=== PATIENT | male | born 1945 | race Caucasian/White ===

== ENCOUNTER 2016-04-07 19:26 | Emergency (ER) | payer BC, OTHER ==
[2016-04-07 19:30] VITALS: BP 138/77; PULSE 105; RESP 18; TEMP 98.6; O2SAT 96
--- NOTE | 2016-04-07 19:49 | PD ---
HPI Chief Complaint: Alcohol intoxication Time Seen by Provider: 19:31 Travel History International Travel<30 days: No (unknown) Contact w/Intl Traveler<30days: No (unknown) History of Present Illness HPI 70yo M with PMH of depression, alcohol abuse and neuropathy brought in as Szymanski Act because he was intoxicated, sitting at home with feces and also states he was going to kill someone at home. Pt denies any suicidal ideation here. No neurologic deficit or signs of trauma. Denies any complaints but is intoxicated. PFSH Social History Tobacco Use: No (unknown) Allergies-Medications (Allergen,Severity, Reaction): Coded Allergies: DEMETRIS Inhibitors (Verified Allergy, Unknown, 04/08/16) Reported Meds & Prescriptions Reported Meds & Active Scripts Active Reported [BP med] 10 Mg DAILY Lyrica (Pregabalin) 100 Mg Cap 100 Mg PO Q6HR Amitriptyline (Amitriptyline HCl) 25 Mg Tab 25 Mg PO HS Review of Systems Except as stated in HPI: all other systems reviewed are Neg Physical Exam Narrative GENERAL: 70yo M intoxicated but oriented to person, time and place. SKIN: Warm and dry. HEAD: Atraumatic. Normocephalic. EYES: Pupils equal and round. EOMI. No scleral icterus. No injection or drainage. ENT: No nasal bleeding or discharge. Mucous membranes pink and moist. NECK: Trachea midline. No JVD. CARDIOVASCULAR: Regular rate and rhythm. No murmur appreciated. RESPIRATORY: No accessory muscle use. Clear to auscultation. Breath sounds equal bilaterally. GASTROINTESTINAL: Abdomen softly distended, non-tender. No rebound tenderness or guarding. MUSCULOSKELETAL: No obvious deformities. No clubbing. No cyanosis. No edema. NEUROLOGICAL: Awake and alert. No obvious cranial nerve deficits. Motor grossly within normal limits. Normal speech. Muscle strength 5/5 in all extremities. Sensation intact. PSYCHIATRIC: Appropriate mood and affect; insight and judgment normal. Data Data Last Documented VS Vital Signs Date Time Temp Pulse Resp B/P Pulse Ox O2 Delivery O2 Flow Rate FiO2 04/08/16 11:58 96 18 155/90 96 Room Air 04/08/16 11:00 98.5 Orders Complete Blood Count With Diff (04/07/16 19:31) Comprehensive Metabolic Panel (04/07/16 19:31) Urinalysis - C+S If Indicated (04/07/16 19:31) Drug Screen, Random Urine (04/07/16 19:31) Electrocardiogram (04/07/16 19:31) Alcohol (Ethanol) (04/07/16 19:31) Salicylates (Aspirin) (04/07/16 19:31) Tylenol (Acetaminophen) (04/07/16 19:31) Psych Screen (04/07/16 19:31) Sodium Chlor 0.9% 1000 Ml Inj (Ns 1000 M (04/07/16 21:30) Sodium Chlor 0.9% 1000 Ml Inj (Ns 1000 M (04/07/16 22:45) Acetaminophen (Tylenol) (04/08/16 04:00) Acetaminophen (Tylenol) (04/08/16 04:03) Knee, Complete (4vws) (04/08/16 ) Ice/Cold Pack (04/08/16 09:06) Acetaminophen (Tylenol) (04/08/16 09:15) ^ Demetris Bandage (04/08/16 10:09) Diet Regular Basic (04/08/16 Lunch) Labs Laboratory Tests Test 04/07/16 04/07/16 20:56 21:35 Urine Color LIGHT-YELLOW Urine Turbidity CLEAR Urine pH 6.0 Urine Specific [place] 1.005 Urine Protein NEG mg/dL Urine Glucose (UA) NEG mg/dL Urine Ketones NEG mg/dL Urine Occult Blood NEG Urine Nitrite NEG Urine Bilirubin NEG Urine Urobilinogen LESS THAN 2.0 MG/DL Urine Leukocyte Esterase NEG Urine RBC LESS THAN 1 /hpf Urine WBC LESS THAN 1 /hpf Urine Mucus FEW /lpf Microscopic Urinalysis Comment CULT NOT INDICATED Sodium Level 139 MEQ/L Potassium Level 3.7 MEQ/L Chloride Level 103 MEQ/L Carbon Dioxide Level 25.6 MEQ/L Anion Gap 10 MEQ/L Blood Urea Nitrogen 16 MG/DL Creatinine 1.22 MG/DL Estimat Glomerular Filtration 59 ML/MIN Rate Random Glucose 103 MG/DL Calcium Level 8.5 MG/DL Total Bilirubin 0.3 MG/DL Aspartate Amino Transf 33 U/L (AST/SGOT) Alanine Aminotransferase 29 U/L (ALT/SGPT) Alkaline Phosphatase 73 U/L Total Protein 8.5 GM/DL Albumin 4.0 GM/DL Salicylates Level LESS THAN 1.7 MG/DL Urine Opiates Screen NEG Acetaminophen Level LESS THAN 2.0 MCG/ML Urine Barbiturates Screen NEG Urine Amphetamines Screen NEG Urine Benzodiazepines Screen NEG Urine Cocaine Screen NEG Urine Cannabinoids Screen NEG Ethyl Alcohol Level 303 MG/DL White Blood Count 11.1 TH/MM3 Red Blood Count 3.96 MIL/MM3 Hemoglobin 12.4 GM/DL Hematocrit 36.3 % Mean Corpuscular Volume 91.6 FL Mean Corpuscular Hemoglobin 31.2 PG Mean Corpuscular Hemoglobin 34.1 % Concent Red Cell Distribution Width 16.6 % Platelet Count 229 TH/MM3 Mean Platelet Volume 6.7 FL Neutrophils (%) (Auto) 84.9 % Lymphocytes (%) (Auto) 9.8 % Monocytes (%) (Auto) 4.8 % Eosinophils (%) (Auto) 0.2 % Basophils (%) (Auto) 0.3 % Neutrophils # (Auto) 9.4 TH/MM3 Lymphocytes # (Auto) 1.1 TH/MM3 Monocytes # (Auto) 0.5 TH/MM3 Eosinophils # (Auto) 0.0 TH/MM3 Basophils # (Auto) 0.0 TH/MM3 CBC Comment DIFF FINAL Differential Comment MDM Medical Decision Making Medical Screen Exam Complete: Yes Emergency Medical Condition: Yes Interpretation(s) EKG: NSR 93bpm. Normal axis. No ST segment elevation or depression. Q wave II , III, aVF. Differential Diagnosis Alcohol intoxication Narrative Course 70yo M with depression and alcohol abuse brought in as Szymanski Act for stating he wanted to kill someone at home while intoxicated. Pt is moving all extremities with no signs of trauma. Pt is intoxicated but answers questions and has full muscle strength in extremities with equal sensations. Pt was cleaned by nurse and denies any complaints. As per EVAC, pt's cat recently and he has been drinking heavily. Pt admits to drinking too much rum. Will obtain labs, EKG, and placed psych evaluation. EKG reviewed, pending labs, UA before medical clearance. Pt sign out to next team to follow up and medically clear for psych evaluation. Diagnosis Primary Impression: Medical clearance for psychiatric admission Shelia Padgett DO Apr 07, 2016 19:49
[2016-04-07 21:19] VITALS: BP 135/88; PULSE 105; RESP 22; O2SAT 92
[2016-04-07] MEDS ORDERED: SODIUM CHLOR 0.9% 1000 ML INJ 1,000 ML IV ONE ×2 (21:30→22:45)
--- NOTE | 2016-04-07 21:34 | PD ---
Physical Exam Exam Limitations: Intoxication Date Seen by Provider: Apr 07, 2016 Narrative For full history and physical examination please see previous provider's note. I assumed care of this patient at change of shift. Patient reports to me that he is not suicidal or homicidal. He was brought in under Szymanski act for threatening to kill his Ynes, and making threatening statements towards her. Patient was found sitting intoxicated in his own feces at home unable to stand up. Patient does admit to drinking "lots" of rum today. Data Data Last Documented VS Vital Signs Date Time Temp Pulse Resp B/P Pulse Ox O2 Delivery O2 Flow Rate FiO2 04/07/16 22:49 94 18 131/75 98 Room Air 04/07/16 19:30 98.6 Orders Complete Blood Count With Diff (04/07/16 19:31) Comprehensive Metabolic Panel (04/07/16 19:31) Urinalysis - C+S If Indicated (04/07/16 19:31) Drug Screen, Random Urine (04/07/16 19:31) Electrocardiogram (04/07/16 19:31) Alcohol (Ethanol) (04/07/16 19:31) Salicylates (Aspirin) (04/07/16 19:31) Tylenol (Acetaminophen) (04/07/16 19:31) Psych Screen (04/07/16 19:31) Sodium Chlor 0.9% 1000 Ml Inj (Ns 1000 M (04/07/16 21:30) Sodium Chlor 0.9% 1000 Ml Inj (Ns 1000 M (04/07/16 22:45) Labs Laboratory Tests Test 04/07/16 04/07/16 20:56 21:35 Urine Color LIGHT-YELLOW Urine Turbidity CLEAR Urine pH 6.0 Urine Specific [place] 1.005 Urine Protein NEG mg/dL Urine Glucose (UA) NEG mg/dL Urine Ketones NEG mg/dL Urine Occult Blood NEG Urine Nitrite NEG Urine Bilirubin NEG Urine Urobilinogen LESS THAN 2.0 MG/DL Urine Leukocyte Esterase NEG Urine RBC LESS THAN 1 /hpf Urine WBC LESS THAN 1 /hpf Urine Mucus FEW /lpf Microscopic Urinalysis Comment CULT NOT INDICATED Sodium Level 139 MEQ/L Potassium Level 3.7 MEQ/L Chloride Level 103 MEQ/L Carbon Dioxide Level 25.6 MEQ/L Anion Gap 10 MEQ/L Blood Urea Nitrogen 16 MG/DL Creatinine 1.22 MG/DL Estimat Glomerular Filtration 59 ML/MIN Rate Random Glucose 103 MG/DL Calcium Level 8.5 MG/DL Total Bilirubin 0.3 MG/DL Aspartate Amino Transf 33 U/L (AST/SGOT) Alanine Aminotransferase 29 U/L (ALT/SGPT) Alkaline Phosphatase 73 U/L Total Protein 8.5 GM/DL Albumin 4.0 GM/DL Salicylates Level LESS THAN 1.7 MG/DL Urine Opiates Screen NEG Acetaminophen Level LESS THAN 2.0 MCG/ML Urine Barbiturates Screen NEG Urine Amphetamines Screen NEG Urine Benzodiazepines Screen NEG Urine Cocaine Screen NEG Urine Cannabinoids Screen NEG Ethyl Alcohol Level 303 MG/DL White Blood Count 11.1 TH/MM3 Red Blood Count 3.96 MIL/MM3 Hemoglobin 12.4 GM/DL Hematocrit 36.3 % Mean Corpuscular Volume 91.6 FL Mean Corpuscular Hemoglobin 31.2 PG Mean Corpuscular Hemoglobin 34.1 % Concent Red Cell Distribution Width 16.6 % Platelet Count 229 TH/MM3 Mean Platelet Volume 6.7 FL Neutrophils (%) (Auto) 84.9 % Lymphocytes (%) (Auto) 9.8 % Monocytes (%) (Auto) 4.8 % Eosinophils (%) (Auto) 0.2 % Basophils (%) (Auto) 0.3 % Neutrophils # (Auto) 9.4 TH/MM3 Lymphocytes # (Auto) 1.1 TH/MM3 Monocytes # (Auto) 0.5 TH/MM3 Eosinophils # (Auto) 0.0 TH/MM3 Basophils # (Auto) 0.0 TH/MM3 CBC Comment DIFF FINAL Differential Comment [facility] Medical Record Reviewed: Yes Supervised Visit with ALFREDO: Yes Interpretation(s) Vital Signs Date Time Temp Pulse Resp B/P Pulse Ox O2 Delivery O2 Flow Rate FiO2 04/07/16 21:19 105 22 135/88 92 Room Air 04/07/16 19:30 98.6 105 18 138/77 96 Differential Diagnosis Substance abuse versus acute intoxication versus depression versus delirium versus psychosis versus other Narrative Course Patient is a 70-year-old male who was brought in under a Szymanski act for threatening to kill his . Patient was heavily intoxicated, unable to stand and found sitting in his own feces. Patient reports significant home stressors , he states that his stepdaughter is addicted to crack and he is tired of financially supporting her. The time of my assessment, patient appears to still be intoxicated. Labs pending, his heart rate is elevated at 105, IV fluids ordered. Patient is resting comfortably, his vital signs are otherwise stable. Patient was given IV fluid resuscitation, his heart rate was reassessed at 94, his vital signs are stable. His alcohol level was 303. Patient is medically clear for psychiatric evaluation. Diagnosis Primary Impression: Medical clearance for psychiatric admission Additional Impressions: Alcohol intoxication Qualified Code: F10.120 - Alcohol intoxication, uncomplicated Homicidal ideations Condition: Stable Li Cline Apr 07, 2016 21:34
[2016-04-07 21:35] LABS: BLOOD, URINE NEG (NEG); COMMENT (UR) CULT NOT INDICATED; CULTURE IF INDICATED CULT NOT INDICATED; GLUCOSE,URINE NEG (NEG); KETONE, URINE NEG (NEG); MUCUS URINE FEW /lpf (OCC); NITRITE,URINE NEG (NEG); URINE COLOR LIGHT-YELLOW (YELLW/STRAW)
[2016-04-07 21:40] LABS: AMPHETAMINE, URINE NEG (NEG); BARBITURATES, URINE NEG (NEG); COCAINE, URINE NEG (NEG)
[2016-04-07 21:45] LABS: AUTOMATED NEUTROPHIL # 9.4 TH/MM3 (1.8-7.7); BASOPHIL % 0.3 % (0.0-2.0); EOSINOPHIL % 0.2 % (0.0-4.0); HEMATOCRIT 36.3 % (39.0-51.0); HEMO FLAGS DIFF FINAL; LYMPH % 9.8 % (9.0-44.0); LYMPHOCYTE # 1.1 TH/MM3 (1.0-4.8); MEAN CELL VOLUME 91.6 FL (80.0-100.0); MEAN CORPUSCULAR HEMOGLOBIN 31.2 PG (27.0-34.0); MEAN CORPUSCULAR HGB CONC 34.1 % (32.0-36.0); MONO % 4.8 % (0.0-8.0); NEUT % 84.9 % (16.0-70.0); PLATELET COUNT 229 TH/MM3 (150-450); RED BLOOD COUNT 3.96 MIL/MM3 (4.50-5.90); RED CELL DISTRIBUTION WIDTH 16.6 % (11.6-17.2); WHITE BLOOD COUNT 11.1 TH/MM3 (4.0-11.0)
[2016-04-07 21:50] LABS: ANION GAP 10 MEQ/L (5-15)
[2016-04-07 21:53] LABS: ALKALINE PHOSPHATASE 73 U/L (45-117); ALT (GPT) 29 U/L (12-78); AST (GOT) 33 U/L (15-37); BICARBONATE 25.6 MEQ/L (21.0-32.0); BLOOD UREA NITROGEN 16 MG/DL (7-18); CHLORIDE 103 MEQ/L (98-107); GLOMERULAR FILTRATION RATE 59 ML/MIN (>89); POTASSIUM 3.7 MEQ/L (3.5-5.1); SODIUM (NA) 139 MEQ/L (136-145); TOTAL BILIRUBIN ADULT 0.3 MG/DL (0.2-1.0)
[2016-04-07 22:27] LABS: ACETAMINOPHEN LESS THAN 2.0 MCG/ML (10.0-30.0)
[2016-04-07 22:49] VITALS: BP 131/75; PULSE 94; RESP 18; O2SAT 98
[2016-04-07 23:26] VITALS: BP 155/71; PULSE 98; RESP 18; TEMP 98.1; O2SAT 97
[2016-04-08 04:00] VITALS: BP 130/81; PULSE 81; RESP 16; TEMP 97.8; O2SAT 99
[2016-04-08] MEDS ORDERED: ACETAMINOPHEN 325 MG TAB PO ONE (04:00)
[2016-04-08] MEDS ORDERED: ACETAMINOPHEN 325 MG TAB ONE (04:03)
--- NOTE | 2016-04-08 09:06 | PD ---
Physical Exam Narrative Patient was initially seen and evaluated last night after being brought in under a Szymanski act and intoxicated. Patient awoke this morning complaining of left knee pain on the medial aspect describes a burning/stabbing pain without radiation. Pain is worse with palpation and certain movement. Patient is uncertain if he injured the knee. Patient denies any issues with his knee previously. Knee: Negative patellar apprehension, varus and valgus maneuvers, anterior draw test, and Annika test. Pulses equal BL distal to injury. Capillary refill less than 2 seconds distal to injury and equal BL. FROM distal to injury and equal BL. Strength distal to injury equal BL. NV intact distal to injury. Dorsal pulses equal BL. Patient reports tenderness to palpation of the medial aspect of left knee. Data Data Last Documented VS Vital Signs Date Time Temp Pulse Resp B/P Pulse Ox O2 Delivery O2 Flow Rate FiO2 04/08/16 09:29 103 17 141/70 96 Room Air 04/08/16 04:00 97.8 Orders Complete Blood Count With Diff (04/07/16 19:31) Comprehensive Metabolic Panel (04/07/16 19:31) Urinalysis - C+S If Indicated (04/07/16 19:31) Drug Screen, Random Urine (04/07/16 19:31) Electrocardiogram (04/07/16 19:31) Alcohol (Ethanol) (04/07/16 19:31) Salicylates (Aspirin) (04/07/16 19:31) Tylenol (Acetaminophen) (04/07/16 19:31) Psych Screen (04/07/16 19:31) Sodium Chlor 0.9% 1000 Ml Inj (Ns 1000 M (04/07/16 21:30) Sodium Chlor 0.9% 1000 Ml Inj (Ns 1000 M (04/07/16 22:45) Acetaminophen (Tylenol) (04/08/16 04:00) Acetaminophen (Tylenol) (04/08/16 04:03) Knee, Complete (4vws) (04/08/16 ) Ice/Cold Pack (04/08/16 09:06) Acetaminophen (Tylenol) (04/08/16 09:15) ^ Demetris Bandage (04/08/16 10:09) Labs Laboratory Tests Test 04/07/16 04/07/16 20:56 21:35 Urine Color LIGHT-YELLOW Urine Turbidity CLEAR Urine pH 6.0 Urine Specific [place] 1.005 Urine Protein NEG mg/dL Urine Glucose (UA) NEG mg/dL Urine Ketones NEG mg/dL Urine Occult Blood NEG Urine Nitrite NEG Urine Bilirubin NEG Urine Urobilinogen LESS THAN 2.0 MG/DL Urine Leukocyte Esterase NEG Urine RBC LESS THAN 1 /hpf Urine WBC LESS THAN 1 /hpf Urine Mucus FEW /lpf Microscopic Urinalysis Comment CULT NOT INDICATED Sodium Level 139 MEQ/L Potassium Level 3.7 MEQ/L Chloride Level 103 MEQ/L Carbon Dioxide Level 25.6 MEQ/L Anion Gap 10 MEQ/L Blood Urea Nitrogen 16 MG/DL Creatinine 1.22 MG/DL Estimat Glomerular Filtration 59 ML/MIN Rate Random Glucose 103 MG/DL Calcium Level 8.5 MG/DL Total Bilirubin 0.3 MG/DL Aspartate Amino Transf 33 U/L (AST/SGOT) Alanine Aminotransferase 29 U/L (ALT/SGPT) Alkaline Phosphatase 73 U/L Total Protein 8.5 GM/DL Albumin 4.0 GM/DL Salicylates Level LESS THAN 1.7 MG/DL Urine Opiates Screen NEG Acetaminophen Level LESS THAN 2.0 MCG/ML Urine Barbiturates Screen NEG Urine Amphetamines Screen NEG Urine Benzodiazepines Screen NEG Urine Cocaine Screen NEG Urine Cannabinoids Screen NEG Ethyl Alcohol Level 303 MG/DL White Blood Count 11.1 TH/MM3 Red Blood Count 3.96 MIL/MM3 Hemoglobin 12.4 GM/DL Hematocrit 36.3 % Mean Corpuscular Volume 91.6 FL Mean Corpuscular Hemoglobin 31.2 PG Mean Corpuscular Hemoglobin 34.1 % Concent Red Cell Distribution Width 16.6 % Platelet Count 229 TH/MM3 Mean Platelet Volume 6.7 FL Neutrophils (%) (Auto) 84.9 % Lymphocytes (%) (Auto) 9.8 % Monocytes (%) (Auto) 4.8 % Eosinophils (%) (Auto) 0.2 % Basophils (%) (Auto) 0.3 % Neutrophils # (Auto) 9.4 TH/MM3 Lymphocytes # (Auto) 1.1 TH/MM3 Monocytes # (Auto) 0.5 TH/MM3 Eosinophils # (Auto) 0.0 TH/MM3 Basophils # (Auto) 0.0 TH/MM3 CBC Comment DIFF FINAL Differential Comment [facility] Supervised Visit with ALFREDO: No Narrative Course There is no clinical evidence to suspect bony injury by exam. Radiographic examination revealed no fracture seen at this time. The patient has full range of motion on active and passive motions. There is no significant edema. There is no proximal or distal joint effusion. The distal extremity appears neurovascularly intact, without evidence of neurovascular injury nor compartment syndrome. Tendon exam also was intact. The patient was given warnings for vascular compromise. The patient is to follow up with their regular physician or Orthopedics. Diagnosis Primary Impression: Medical clearance for psychiatric admission Additional Impressions: Alcohol intoxication Qualified Code: F10.120 - Alcohol intoxication, uncomplicated Homicidal ideations Left knee pain Qualified Code: M25.562 - Left knee pain, unspecified chronicity Referrals: Adan Garnett MD Patient Instructions: General Instructions, Knee Pain (ED) Additional Instruction: Follow-up with your primary care physician and/or orthopedics this week for reevaluation of your knee pain. Use [id number] Tylenol and/or ibuprofen as needed for pain. Follow instructions on the packaging. Apply ice to affected area 20 minutes per hour as needed for pain. Wear demetris wrap for comfort as needed.. Return to the emergency department if symptoms get worse. Condition: Stable Todd Robertson Apr 08, 2016 09:06
[2016-04-08] MEDS ORDERED: ACETAMINOPHEN 500 MG CPLT PO ONE (09:15)
[2016-04-08 09:29] VITALS: BP 141/70; PULSE 103; RESP 17; O2SAT 96
[2016-04-08] MEDS ORDERED: AMIT25TA9 PO (09:33)
[2016-04-08] MEDS ORDERED: LYRI100C PO (09:33)
[2016-04-08] MEDS ORDERED: BP med (09:33)
--- NOTE | 2016-04-08 10:06 | RADRPT ---
EXAM DATE/TIME: 04/08/2016 09:53 [place] COMPARISON: No previous studies available for comparison. INDICATIONS : Left knee pain, No trauma MEDICAL HISTORY : None. SURGICAL HISTORY : None. ENCOUNTER: Initial ACUITY: 1 day PAIN SCORE: 7/10 LOCATION: Left knee FINDINGS: Four view examination of the left knee demonstrates no evidence of fracture or dislocation. Bony min eralization is normal. The articular surfaces are intact. The suprapatellar soft tissues have a nor mal configuration. CONCLUSION: Negative for fracture or joint effusion. Olu Bowens MD FACR on April 08, 2016 at 10:04 Board Certified Radiologist. This report was verified electronically.
[2016-04-08 11:00] VITALS: BP 159/91; PULSE 116; RESP 18; TEMP 98.5; O2SAT 97
[2016-04-08 11:58] VITALS: BP 155/90; PULSE 96; RESP 18; O2SAT 96
--- NOTE | 2016-04-08 12:00 | PD.CONS ---
Provisional Diagnosis Admission Date Alcohol abuse with alcohol-induced mood disorder F 10.14, alcohol intoxication History of Present Illness Service Psychiatry Consult Requested By EDMD Reason for Consult Szymanski act Primary Care Physician No Primary Care Physician HPI Patient is a 70-year-old white male comes here under Szymanski act by the [facility]'s office dated 04/07/16 1836 hrs. stating patient has been drinking alcoholic beverages heavily for the past 2 weeks he fell to the ground and was unable to stand up he defecated himself and sitting in his feces his Romulo Walsh and stepdaughter Regi Olivo were attempting to stand him up but were unsuccessful due to his highly intoxicated state Ynes call 911 seeking medical assistance as Mj was seated with his legs bent at the knees and feet under him restricting blood flow . Aspirin was on the 9010 Mj became hostile threatening to kill Ynes. While on same fragment several statements of your dad and pointed to Ynes. Ynes advise she is not violent or threatening when he is not drinking. Patient seen screened in the ED blood alcohol level of 303. Patient seen today in the J pod at the present time patient sitting quietly in his room on J pod nurse Ye present throughout session, patient is alert oriented calm cooperative just vague mild tremors noted X acknowledging reluctantly there is an alcoholic that he drinks multiple days per week that he has a drink in the morning that he drinks vodka. He acknowledges black and a passing out. He acknowledges a detox number of years ago. He acknowledges multiple DUIs. He denies suicidality homicidality voices or visions. He denies any prior psychiatric contact psychotropic medications of psychiatric hospitalizations. He states he lives with his and his stepdaughter began along well but he does acknowledge behavioral issues when he becomes intoxicated. His history of alcohol abuse with the family also. At the present time patient does not meet Szymanski act criteria I will lift the Szymanski act. There is no Rx written by me as okay by psych for discharge when medically cleared strong recommendations AA, which is attended in the past with success. Strong recommendation voluntary assessment through [facility] act outpatient substance abuse assessment Review of Systems ROS Limitations: Intoxication Except as stated in HPI: all other systems reviewed are Neg Past Family Social History Coded Allergies: CHEO Inhibitors (Verified Allergy, Unknown, 04/08/16) Past Medical History Patient medically cleared ED Reported Medications [BP med] No Conflict Check10 Mg DAILY 04/08/16 Pregabalin (Lyrica)100 Mg [id number] Mg PO Q6HR #60 CAP Ref 0 04/08/16 Amitriptyline 25 Mg Tab25 Mg PO HS 04/08/16 Family History Family history EtOH abuse Social History Patient lives with and stepdaughter Patient's Strengths (min. 2) Patient verbal plexus health care Physical Exam Please see ED physical exam Vital Signs Vital Signs Date Time Temp Pulse Resp B/P Pulse Ox O2 Delivery O2 Flow Rate FiO2 04/08/16 11:00 98.5 116 18 159/91 97 Room Air Mental Status Examination Alert oriented heavily said white male laying calmly in his Xavier pod Appearance Somewhat disheveled Speech: Unremarkable, Hesitant (mildly) Orientation: x3 Memory: Unremarkable Thought Process: Logical Thought Content: Unremarkable Hallucination Type: None Attention and Concentration: Other (fair) Suicidal Ideation: No Previous Suicide Attempts: No Homicidal Ideation: No Previous Homicide Attempts: No Insight: Poor Judgement: Poor Affect: Other (slight decreased range of motion intensity) Mood: Euthymic (to mildly dysphoric and restricted) Motor Activity: Normal gait Assessment & Plan Problem List: (1) Alcohol intoxication ICD Code: F10.129 (2) Alcohol abuse with alcohol-induced mood disorder ICD Code: F10.14 Assessment & Plan Estimated LOS: days at this time patient no longer meets Szymanski criteria will lift Szymanski act was referred to AA, refer to [facility] [place] for voluntary outpatient substance abuse assessment, no Rx by nv Discharge Planning See above Request HC Surrog/Guard Advoc?: No Problem Qualifiers (1) Alcohol intoxication: Qualified Code: F10.120 - Alcohol intoxication, uncomplicated Chavo Hansen MD Apr 08, 2016 12:00
--- NOTE | 2016-04-08 15:52 | EKG ---
Date Performed: 04/07/2016 Time Performed: 20:50:42 PTAGE: 70 years EKG: Sinus rhythm INCOMPLETE RIGHT BUNDLE BRANCH BLOCK POSSIBLE OLD INFERIOR MYOCARDIAL INFARCTION ABNORMAL ECG NO PREVIOUS TRACING DOCTOR: Dewayne Nieves Interpretating Date/Time 04/08/2016 15:51:55
== END 2016-04-08 13:50 | disposition home or self-care (01) ==
LOC: NEPA 19:26 → NEPJ 04-08 13:50
DX: F10.120 Alcohol abuse with intoxication, uncomplicated (principal); M25.562 Pain in left knee; R94.31 Abnormal electrocardiogram [ECG] [EKG]; Y90.8 Blood alcohol level of 240 mg/100 ml or more
CPT/HCPCS: 73564; 80053; 80307; 80329; 81001; 85025; 93005; 96360; 96361; 99284; J7030; 80320; G0480